=== PATIENT | male | born 1990 | race Caucasian/White ===

== ENCOUNTER 2017-09-09 18:28 | Emergency (ER) | payer SELFPAY ==
[~2017-09-09 18:28] MED LIST: PERC10TA27 PO
[2017-09-09 18:29] VITALS: BP 120/68; PULSE 105; RESP 18; TEMP 98.9; O2SAT 99
--- NOTE | 2017-09-09 20:19 | PD ---
HPI Chief Complaint: Cold / Flu Symptoms Time Seen by Provider: 20:15 Travel History International Travel<30 days: No Contact w/Intl Traveler<30days: No Traveled to known affect area: No History of Present Illness HPI 27-year-old male presents for evaluation of congestion, cough, rhinorrhea, frontal head pressure for the past few weeks. Symptoms are mild, no aggravating or relieving factors. Denies fevers or chills. No other complaints. 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) Allergies-Medications (Allergen,Severity, Reaction): Coded Allergies: No Known Allergies (Unverified , 10/21/15) Reported Meds & Prescriptions Reported Meds & Active Scripts Active Flonase Nasal [place] (Fluticasone Nasal [place]) 50 Mcg/Act [place] 100 Mcg EACH NARE BID Amoxicillin 875 Mg Tab 875 Mg PO BID 10 Days Review of Systems General / Constitutional: No: Fever, Chills HENT: Positive: Headaches, Congestion, No: Sore Throat Cardiovascular: No: Chest Pain or Discomfort Respiratory: Positive: Cough Physical Exam Narrative GENERAL: Well-nourished male in no acute distress SKIN: Warm and dry. HEAD: Atraumatic. Normocephalic. EYES: Pupils equal and round. No scleral icterus. No injection or drainage. ENT: No nasal bleeding or discharge. Mucous membranes pink and moist. NECK: Trachea midline. No JVD. CARDIOVASCULAR: Regular rate and rhythm. No murmur appreciated. RESPIRATORY: No accessory muscle use. Clear to auscultation. Breath sounds equal bilaterally. Data Data Last Documented VS Vital Signs Date Time Temp Pulse Resp B/P (MAP) Pulse Ox O2 Delivery O2 Flow Rate FiO2 09/09/17 18:29 98.9 105 18 120/68 (85) 99 Orders Orders Influenzae A/B Antigen (09/09/17 18:43) Ed Discharge Order (09/09/17 20:23) MDM Medical Decision Making Medical Screen Exam Complete: Yes Emergency Medical Condition: Yes Medical Record Reviewed: Yes Differential Diagnosis Sinusitis, bronchitis, influenza, pneumonia Narrative Course Influenza antigen performed in triage is negative. Examination is consistent with sinusitis. He is stable for discharge. Diagnosis Primary Impression: Sinusitis Med/Other Pt SpecificInfo: Prescription(s) given Scripts Fluticasone Nasal [place] (Flonase Nasal [place]) 50 Mcg/Act [place] 100 MCG EACH NARE BID for Allergies, #1 BOTTLE 0 Refills Prov: Nikita Echavarria MD 09/09/17 Amoxicillin (Amoxicillin) 875 Mg Tab 875 MG PO BID for Infection for 10 Days, #20 TAB 0 Refills Prov: Nikita Echavarria MD 09/09/17 Disposition: 01 DISCHARGE HOME Condition: Stable Josehp Baldwin Sep 09, 2017 20:19
[2017-09-09] MEDS ORDERED: AMOX875T PO (20:20)
[2017-09-09] MEDS ORDERED: FLUT1SPR5 EACH NARE (20:20)
== END 2017-09-09 20:49 | disposition home or self-care (01) ==
LOC: NEPK 18:28
DX: J32.9 Chronic sinusitis, unspecified (principal)
CPT/HCPCS: 87804; 99283